=== PATIENT | male | born 1985 | race Caucasian/White ===

== ENCOUNTER 2019-06-29 03:04 | Emergency (ER) | payer BC, OTHER ==
[2019-06-29] MEDS ORDERED: Al Hydrox/Mg Hydrox/Simet LIQ* 30 ML UDC PO ONE (03:40)
--- NOTE | 2019-06-29 03:47 | ED ---
GI/ HPI - HPI Summary HPI Summary: Pt is a 34 y/o M presenting to the ED with a chief complaint of GI issues. He states that this past 06/26/19, he was experiencing sore throat, cough, sneezing, and rhinorrhea. He also began experiencing episodes of hiccupping and burping, only alleviated by pepto bismol. He reports subjective fever, and that the respiratory symptoms have resolved. He denies vomiting, diarrhea, and abd pain. - History of Current Complaint Chief Complaint: EDUpperRespComplaint Time Seen by Provider: 06/29/19 03:31 Stated Complaint: ACID REFLEX PER PT Hx Obtained From: Patient Onset/Duration: Started Days Ago, Still Present Timing: Intermittent, Lasting Hours Severity: Mild Current Severity: None Pain Intensity: 0 Location of Pain: None Associated Signs and Symptoms: Positive: Cough, Other: - hiccupping/burping. Negative: Vomiting, Diarrhea, Abdominal Pain Aggravating Factor(s): Nothing Alleviating Factor(s): Antacids - Allergy/Home Medications Allergies/Adverse Reactions: Allergies Allergy/AdvReac Type Severity Reaction Status Date / Time No Known Allergies Allergy Verified 06/29/19 03:11 PMH/Surg Hx/FS Hx/Imm Hx Previously Healthy: Yes Endocrine/Hematology History: Denies: Hx Diabetes Cardiovascular History: Denies: Hx Hypertension Infectious Disease History: No Infectious Disease History: Denies: Traveled Outside the [place] in Last 30 Days - Family History Known Family History: Negative: Cardiac Disease - Social History Alcohol Use: Rare Hx Substance Use: No Substance Use Type: Reports: None Hx Tobacco Use: No Smoking Status (MU): Never Smoked Tobacco Review of Systems Positive: Fever, Other - hiccupping/burping Positive: Sore Throat, Nasal Discharge Positive: Cough Negative: Abdominal Pain, Vomiting, Diarrhea All Other Systems Reviewed And Are Negative: Yes Physical Exam - Summary Physical Exam Summary: Constitutional: Well-developed, Well-nourished, Alert. (-) Distressed Skin: Warm, Dry HENT: Normocephalic; Atraumatic Eyes: Conjunctiva normal Neck: Musculoskeletal ROM normal neck. (-) JVD, (-) Stridor, (-) Tracheal deviation Cardio: Rhythm regular, rate normal, Heart sounds normal; Intact distal pulses; Radial pulses are 2+ and symmetric. (-) Murmur Pulmonary/Chest wall: Effort normal. (-) Respiratory distress, (-) Wheezes, (-) Rales Abd: Soft, (-) tenderness, (-) Distension, (-) Guarding, (-) Rebound Musculoskeletal: (-) Edema Lymph: (-) Cervical adenopathy Neuro: Alert, Oriented x3 Psych: Mood and affect Normal Triage Information Reviewed: Yes Vital Signs On Initial Exam: Initial Vitals Temp Pulse Resp BP Pulse Ox 98.8 F 104 20 123/79 96 06/29/19 03:05 06/29/19 03:05 06/29/19 03:05 06/29/19 03:05 06/29/19 03:05 Vital Signs Reviewed: Yes Procedures - Sedation Patient Received Moderate/Deep Sedation with Procedure: No Diagnostics - Vital Signs Vital Signs Temp Pulse Resp BP Pulse Ox 06/29/19 03:05 98.8 F 104 20 123/79 96 - Laboratory Lab Statement: Any lab studies that have been ordered have been reviewed, and results considered in the medical decision making process. GIGU Course/Dx - Course Course Of Treatment: Patient is here with nonspecific complaints of burping. Patient had coughing and sneezing the day prior but this resolved. Patient's symptoms got better after Pepto-Bismol. Patient's biggest concern was being diagnosed with acid reflux. Patient was trialed on Pepcid for his convenience. - Diagnoses Provider Diagnoses: Hiccups Discharge ED - Sign-Out/Discharge Documenting (check all that apply): Patient Departure - Discharge Plan Condition: Stable Disposition: HOME Prescriptions: Famotidine TAB* [Pepcid 20 MG TAB*] 20 mg PO DAILY 14 Days #14 tab Patient Education Materials: Hiccups (ED) Referrals: [facility] [Outside] Additional Instructions: Please take your prescribed medications as instructed. Return to the emergency department with any new or worsening symptoms. - Billing Disposition and Condition Condition: STABLE Disposition: Home - Attestation Statements Document Initiated by Scribe: Yes Documenting Scribe: Malissa Caro Provider For Whom Scribe is Documenting (Include Credential): Jonathan Stewart MD. Scribe Attestation: Malissa Castorena, scribed for Jonathan Stewart MD. on 10/03/19 at 0515. Scribe Documentation Reviewed: Yes Provider Attestation: The documentation as recorded by the scribe, Malissa Caro accurately reflects the service I personally performed and the decisions made by me, Jonathan Stewart MD. Status of Scribe Document: Viewed
[2019-06-29 04:17] VITALS: BP 0/0
== END 2019-06-29 04:15 | disposition home or self-care (01) ==
LOC: ED 03:04
DX: R06.6 Hiccough (principal)
CPT/HCPCS: 99281; A9270-GY